=== PATIENT | male | born 1935 | race Caucasian/White ===

== ENCOUNTER 2017-01-27 09:01 | Emergency (ER) | payer MEDICARE ==
--- NOTE | ~2017-01-27 | ECH ---
Transthoracic Echocardiography Report (TTE) Demographics Patient Name MANOLO VINCENT Date of Study 01/27/2017 D Patient Number [id number] Visit Number [id number] Date of 1935 Room Number Accession Number [id number] Gender Male Age 81 year(s) Referring Starr Grewal Delivery Lead Evie Beasley [facility] Physician Physician Interpreting Starr Grewal Refrigeration Service Technician Physician Supervising Ordering Physician Starr Grewal MD/MLP Nurse Stress Chief Of Anesthesiology Conclusions Summary Technically fair exam. The estimated left ventricular ejection fraction is 55-60%. There is trivial aortic regurgitation by color Doppler. Mild tricuspid regurgitation by color Doppler. There is mild pulmonary hypertension. The pulmonary pressure (RVSP) is 39 mmHg. Sclerotic aortic valve without stenosis. Procedure Type of Study TTE procedure:Echo Complete SF. Procedure Date Date: 01/27/2017 Start: 01:55 PM Technical Quality: Adequate visualization Indications:Chest pain and Unstable angina. Appropriate Use Criteria: 9 Height: 71 inches Weight: 174 pounds BSA: 1.99 m Rhythm: Within normal limits HR: 59 bpm BP: 142/64 mmHg M-Mode/2D Measurements LV Diastolic Dimension: 5.04 cm LV Systolic Dimension: 2.21 cm LV Septum Diastolic: 0.84 cm LV PW Diastolic: 0.82 cm AO Root Dimension: 2.5 cm Cardiac Output: 4.63 l/min LA Dimension: 3.71 cm Cardiac Index: 2.33 l/min*m RV Diastolic Dimension: 3.67 cm LA volume index: 28 ml/m LVOT: 2.18 cm LVOT VTI: 21.03 cm RV Base: 3.67 cm LV Stroke volume: 78.46 ml RV Mid: 2.2 cm LV Stroke volume index: 39.43 ml/m RV Length: 5.7 cm TAPSE: 2.4 cm Doppler Measurements AV Peak Velocity: 1.35 m/s MV Peak E-Wave: 0.95 m/s AV Peak Gradient: 7.29 mmHg MV Peak A-Wave: 0.81 m/s AV Mean Gradient: 3.25 mmHg MV E/A Ratio: 1.18 LVOT Peak Velocity: 0.88 m/s MV P1/2t: 55.9 msec AV Area (Continuity):2.79 cm MV Deceleration Time: 207.2 msec TR Velocity:2.93 m/s MV Area (PHT): 3.94 cm TR Gradient:34.34 mmHg PV Peak Velocity: 0.93 m/s Estimated RAP:5 mmHg PV Peak Gradient: 3.45 mmHg Estimated RVSP: 39 mmHg Estimated PASP: 39.34 mmHg RA Area: 16.29 cm Findings Left Ventricle The left ventricle is normal in size . Diastolic assessment reveals normal relaxation. Right Ventricle Normal right ventricle structure and function. Left Atrium Normal left atrial size. Right Atrium Normal right atrial size. Mitral Valve Normal mitral valve structure and function. Trivial mitral regurgitation by color Doppler. Aortic Valve The aortic valve is mildly sclerotic. There is trivial aortic regurgitation by color Doppler. Tricuspid Valve Normal tricuspid valve structure and function. Mild tricuspid regurgitation by color Doppler. There is mild pulmonary hypertension. The pulmonary pressure (RVSP) is 39 mmHg. Pulmonic Valve Normal pulmonic valve structure and function. Trivial pulmonic valve regurgitation by color Doppler. Pericardial Effusion No evidence of pericardial effusion. Miscellaneous Visualized portions of the aortic root and ascending aorta appear normal in size. Pleural Effusion No evidence of pleural effusion. Contractility Score LV regional wall motion:(0-Non visualized 1-Normal 2-Hypokinesis 3-Akinesis 4-Dyskinesis 5-Aneurysm) Signature
--- NOTE | 2017-01-28 08:10 | ER ---
ADMIT: 01/27/2017 RM/LOC: ER [facility] MR#: [id number] [address] [address] MANOLO VINCENT [address] [place] [address] Emergency Room Report SEX: M AGE: 81 : 1935 DATE: 01/27/2017 ADDENDUM: See T-sheet for complete H and P. An 81-year-old male with history of coronary artery disease with stents comes in complaining of some intermittent chest pain. He had been at altitude in [place] recently, and his symptoms were worse there. He was seen by Dr. Lind for this yesterday who did some blood work, and it came back. He had an elevated D-dimer and is sent to the ER for evaluation. I repeated some labs today and his cardiac enzymes are negative today as they were yesterday. D- dimer was slightly elevated, so we did get a CT angio of his chest, which shows no PE. Based on his history and his complaints, I am concerned for unstable angina. I contacted Dr. Clements from Cardiology who is supposed to see the patient next week. He is actually seen by Dr. Clements in the ER to evaluate and had an echo done here and is discharged home in stable condition to follow up tomorrow for catheterization. He is told he could return to the ER for any worsening or concerning symptoms in the interim. DIAGNOSES: 1. Unstable angina. 2. Coronary artery disease. Antonio Farris MD/ elda JOB #: [id number] CC: Antonio Farris MD, Attending Physician UNKNOWN, Family Physician
--- NOTE | 2017-02-18 10:38 | CO ---
ADMIT: 01/27/2017 RM/LOC: ER [facility] MR#: [id number] [address] [address] MANOLO VINCENT [address] [place] [address] Consultation SEX: M AGE: 81 : 1935 DATE OF CONSULTATION: 01/27/2017 ATTENDING PHYSICIAN: Antonio Farris CONSULTING PHYSICIAN: Cortes Clements MD CHIEF COMPLAINT: Chest pain, elevated D-dimer. HISTORY OF PRESENT ILLNESS: The patient is a pleasant 81-year-old male patient of Dr. Roblero, who presented to the emergency room today after labs drawn in clinic yesterday came back abnormal. He reports for the last 2 to 3 weeks, he has had intermittent mostly chest pressure, but occasionally sharp chest pain that seems to occur without pattern. He reports when he has the chest pressure that there is sometimes some discomfort that radiates to both of his shoulders, so he is having some chronic constant left-sided neck pain which makes this difficult to tease apart. With the chest pressure, he sometimes feels nauseous or diaphoretic. He does not appreciate any shortness of breath. He is unable to quantify how many episodes he has had, though they often improve with rest and a few times he has taken nitroglycerin which has also improved his symptoms. He denies that these are tied to activity as he has been able to walk multiple miles daily without exacerbating these symptoms. However, he traveled to [place] a few days ago and while he was at a higher altitude, he noticed that he was extremely short of breath and was unable to complete his normal activities. He had so much chest pressure and shortness of breath they actually returned home early from that trip and was seen the next day at Dr. Bailey, his primary care physician's office. In the office, she did a troponin and D-dimer. The troponin was negative. However, when the D-dimer came back elevated this morning, she prompted him to go the emergency room for evaluation. D-dimer was also elevated in the emergency room, but CTA of the chest was without pulmonary emboli. EKG was normal sinus rhythm at 65 beats per minute without ST or T-wave changes. The patient has a past medical history of coronary artery disease, suffering an NH in 2005 with subsequent stents in his RCA and LAD. He had a repeat catheterization in 2010 that showed good patency of the stents. He had a Lexiscan stress test in 2013 which was negative as well. The patient reports that the symptoms were not severe enough that he would have presented to the emergency room on his own, though he is agreeable to further workup. PAST MEDICAL HISTORY: 1. Coronary artery disease with NH in 2005 with a 90% LAD occlusion and 65% to 75% occlusion of the mid and distal RCA. 2. He also has gastroesophageal reflux disease. 3. Anxiety. 4. Osteoarthritis. MEDICATIONS: Please see the scanned document. ALLERGIES: INCLUDE INTOLERANCE TO VALIUM AND LACTOSE. ADMIT: 01/27/2017 RM/LOC: [facility] MR#: [id number] [facility] [address] [address] MANOLO VINCENT [facility] [place] [address] Consultation SEX: M AGE: 81 : 1935 FAMILY HISTORY: The patient endorses a family history of diabetes, cancer, and hypertension. SOCIAL HISTORY: The patient is a previous smoker, who quit in 1979. He used to drink alcohol regularly, but reports now occasional use. He lives in [place]. REVIEW OF SYSTEMS: GENERAL: Denies fatigue, fever, chills, sweats, rash, or weight loss. EYES: Denies double vision, blurred vision, cataracts, or glaucoma. ENT: Denies hearing loss or problems with nose, mouth or throat. CARDIOVASCULAR: Chest pressure consistent with pattern of unstable angina with radiation to bilateral shoulders and associated diaphoresis and nausea. RESPIRATORY: Episodes of shortness of breath at higher altitude. GASTROINTESTINAL: Denies heartburn or difficulty swallowing. No change in bowel habits. Denies dark or bloody stools. No history of ulcers, hiatal hernia, or gallbladder or liver disease. GENITOURINARY: Denies dysuria, hematuria, nocturia, urinary tract infection, or kidney stones. Denies history of renal insufficiency or failure. MUSCULOSKELETAL: Denies history of arthritis or gout. Denies muscle or joint pains. ENDOCRINE: Denies history of thyroid dysfunction or diabetes. HEMATOLOGIC: Denies history of anemia, easy bruising, or cancer. NEUROLOGIC: Denies chronic headaches, dizziness, syncope, stroke, seizures or numbness or tingling. PSYCHIATRIC: Denies history of mental illness or feelings of depression. PHYSICAL EXAMINATION: VITAL SIGNS: Pulse 65, blood pressure 156/73, respiratory rate 20, SpO2 of 96% on room air. Afebrile. SKIN: [place], warm and dry. EYES: Sclerae clear. No xanthelasmas. ENT: Oral mucosa is pink and moist. No jugular venous distention or carotid bruits. CHEST: Respirations are even and unlabored. Lungs have scattered rhonchi. HEART: Regular rate and rhythm. Normal S1, S2. No murmurs, rubs or gallops. ABDOMEN: Soft and nontender. MUSCULOSKELETAL: Gait is normal. EXTREMITIES: Peripheral pulses palpable. No clubbing, cyanosis or edema. PSYCHIATRIC: Alert and oriented. Mood and affect are appropriate. LABORATORY DATA: WBC 5.4, Hgb 13.2, PLT 224. Creatinine 1.1, potassium 4.0, magnesium 2.3. Troponin less than 0.015. D-dimer 0.85. CTA of the chest, no appreciable pulmonary emboli, but mild bronchial wall thickening with slightly prominent interstitial markings and small amount of fluid in the superior pericardial recess. ASSESSMENT: ADMIT: 01/27/2017 RM/LOC: [facility] MR#: [id number] [address] [facility] [address] [place] [id number] MANOLO VINCENT [address] [place] [address] Consultation SEX: M AGE: 81 : 1935 1. Unstable angina. 2. Known coronary artery disease. 3. Hypertension. PLAN: The patient presented to the emergency room with progressive symptoms over the last several weeks concerning for unstable angina. We will complete an echocardiogram today in the ER and then plan to return for left heart catheterization tomorrow morning. The risks and benefits of this plan were discussed with the patient. He was in agreement. Precautions were reviewed. The patient was instructed to return to the emergency room if he had any progression in his symptoms particularly at rest between now and the heart cath tomorrow. He was instructed he may take his medications in the morning per his typical routine. Meredith Byrd MD Resident / Cortes Clements MD / elda JOB #: [id number] CC: Antonio Farris, Attending Physician UNKNOWN, Family Physician
== END 2017-01-27 15:06 | disposition home or self-care (01) ==
LOC: ER 09:01
DX: I25.110 Atherosclerotic heart disease of native coronary artery with unstable angina pectoris (principal); I10 Essential (primary) hypertension; E78.5 Hyperlipidemia, unspecified; Z79.82 Long term (current) use of aspirin

== ENCOUNTER 2017-01-28 06:48 | Day surgery (SDC) | payer MEDICARE ==
[~2017-01-28] VITALS: Ht 177.8 cm; Wt 76.7 kg
--- NOTE | ~2017-01-28 | CATH ---
Cardiac Diagnostic Report Demographics Patient Name MELISA FRENCH Gender Male D Date of 1935 Age 81 year(s) Patient Number [id number] Date of Study 01/28/2017 Visit Number [id number] Room Number Corporate ID Ht 177.8 cm Wt 76.7 kg Accession Number [id number] BSA 1.94 m kg/m Referring Starr Grewal Primary Physician Physician MD Manny BOUCHER Performing Price BOUCHER Secondary Physician Physician Chandrakant Diagnostic Price BOUCHER Assisting Physician Physician Chandrakant Interventional Price BOUCHER Physician Filter Washer Physician Chandrakant Findings and Conclusions Diagnostic Findings and Conclusion Patent Cypher stents in LAD and RCA. Non-obstructive CAD. Normal LVEDP Diagnostic Recommendations Ongoing risk factor modification. Follow up with [facility] provider in 7 days for site check. Procedure Description The patient was brought to the diagnostic cardiac catheterization laboratory in the fasting, non-sedated state. Informed consent was obtained in the written and verbal form after the risks and benefits were explained. The patient had no further questions and agreed to proceed. The planned puncture-incision site(s) were shaved and prepped with ChloraPrep and draped in the usual sterile manner. Conscious sedation, supplemental oxygen, and pain control medications were delivered by a registered nurse under physician guidance. Surface ECG rhythm, blood pressure measurement, and pulse oximetry were monitored throughout the procedure. Arterial access. The right radial access site was infiltrated with lidocaine. The vessel was entered with the Seldinger technique. A 6 Fr sheath was advanced into the vessel and used for catheter placement. Left heart catheterization. A TIG catheter was advanced across the aortic valve to the left ventricle under fluoroscopic guidance. Resting hemodynamics were obtained. Selective left coronary angiography. A TIG catheter was advanced into the left coronary vessel ostium under Fluoroscopic guidance. Contrast was injected by hand. Images were obtained in multiple projections. Selective right coronary angiography. A TIG catheter was advanced into the right coronary vessel ostium under fluoroscopic guidance. Contrast was injected by hand. Images were obtained in multiple projections. Arterial artery hemostasis was achieved with 10 cc air in TR Band. The patient was transferred to back to Short Stay Surgery via cart accompanied by a nurse. The patient left the laboratory in stable condition. Diagnostic Cath Status: Elective Procedure Procedure Type Diagnostic procedure:Angiography:, Coronary Angios w/C The procedure was explained in detail to the patient. Risks, complications and alternative treatments were reviewed. Written consent was obtained. Medications Reviewed with Patient prior to Procedure. Complications: No Complication. Angiographic Findings Dominance: Right Cardiac Arteries and Lesion Findings LMCA: Abnormal. Lesion on LMCA: Distal subsection.20% stenosis . LAD: Abnormal.There is a previous stent on Mid LAD Distal subsection showing wide patency. Lesion on Mid LAD: Proximal subsection.40% stenosis . Comments:Lesion just proximal to existing stent. LCx: Abnormal. Lesion on Mid CX: 30% stenosis . RCA: Abnormal.There is a previous stent on Dist RCA showing wide patency. Lesion on Mid RCA: 40% stenosis . Lesion on Dist RCA: Distal subsection.30% stenosis . Coronary Tree Procedure Data Procedure Date Date: 01/28/2017Start: 09:36 AMEnd: 10:06 AM Entry Locations - Percutaneous access was performed through the Right Radial artery (Primary location). A 6 Fr sheath was inserted. Hemostasis was successfully obtained using a TR band. Procedure Medications Order and Administration + + +-------+------+ !Time !Medication !Dosage !Route ! + + +-------+------+ !01/28/2017 09:34 AM !Fentanyl !25 mcg !I.V. ! + + +-------+------+ !01/28/2017 09:34 AM !Versed !1 mg !I.V. ! + + +-------+------+ !01/28/2017 09:36 AM !Versed !1 mg !I.V. ! + + +-------+------+ !01/28/2017 09:36 AM !Fentanyl !25 mcg !I.V. ! + + +-------+------+ Devices Used - A6F TIG CATHETERwas used for:LV Pressures. - A6F TIG CATHETERwas used for:Left coronary angiography. - A6F TIG CATHETERwas used for:Right coronary angiography. Contrast Material - Isovue 20725 ml Fluoroscopy Time: Diagnostic: 1:30 minutes. Total: 1:30 minutes. Fluoroscopy Dose: Diagnostic: 260 mGy. Total: 260 mGy. Estimated Blood Loss: 6 ml. Medical History Allergies - Other:(Valium). Risk Factors The patient risk factors include:prior PCI;hypertension, last creatinine: 1.1 mg/dl, creatinine clearance: 58.11 ml/min, former tobacco use and prior [place] . Admission Data Admission Date: 01/28/2017 Admission Time: 06:48 AM Insurance Payors: Medicare. Clinical Evaluation Leading to Procedure Diagnosed on 01/27/2017 01:45 PM. - The patient's CAD presentation was assessed as: Non-STEMI. - Anti-anginal medications were prescribed during the past two weeks. The medication is: Beta Blockers. Hemodynamics Condition: Rest O2 Consumption: Estimated: 206.70Heart Rate: 50 bpm Pressures (mmHg) +-----+ + !Site !Pressure ! +-----+ + !LV !108/-9 ,1 ! +-----+ + !AO !87/43 (62) ! +-----+ + !LV !109/-9 ,1 ! +-----+ + !AO !82/51 (69) ! +-----+ + Valve Gradients and Areas + +---------+---------+---------+ +---------+ + !Valve !Peak !Mean !Area !Index !Flow !Source ! + +---------+---------+---------+ +---------+ + !Aortic !22 !10 ! ! ! ! ! + +---------+---------+---------+ +---------+ + !Aortic !22 !10 ! ! ! ! ! + +---------+---------+---------+ +---------+ + Shunts Oxygen Values O2 Capacity 179.52 O2 Consumption 206.7 Discharge Data Discharge Date: 01/28/2017 Hospital Status: Outpatient Signatures
== END 2017-01-28 12:56 | disposition home or self-care (01) ==
LOC: SSS 06:48
DX: I21.4 Non-ST elevation (NSTEMI) myocardial infarction (principal); I25.110 Atherosclerotic heart disease of native coronary artery with unstable angina pectoris; K21.9 Gastro-esophageal reflux disease without esophagitis; F41.9 Anxiety disorder, unspecified; I10 Essential (primary) hypertension; M19.90 Unspecified osteoarthritis, unspecified site; Z87.891 Personal history of nicotine dependence; Z79.899 Other long term (current) drug therapy